=== PATIENT | female | born 1975 | race Caucasian/White ===

== ENCOUNTER 2017-02-23 14:49 | Emergency (ER) | payer OTHER ==
[2017-02-23 17:21] LABS: ADD MAN DIFF? NO
[2017-02-23 17:22] LABS: ABNORMAL IP MESSAGE 1; EOSINOPHILS # 0.2 10^3/ul (0.0-0.5); EOSINOPHILS % 5.4 % (0.0-7.0); HEMATOCRIT 27.8 % (37.0-47.0); HEMOGLOBIN 8.6 g/dl (12.0-16.0); LYMPHOCYTES # 0.6 10^3/ul (0.8-2.9); LYMPHOCYTES % 19.7 % (15.0-51.0); MEAN CORPUSCULAR HEMOGLOBIN 28.1 pg (29.0-33.0); MEAN CORPUSCULAR HGB CONC 30.9 g/dl (32.0-37.0); MEAN CORPUSCULAR VOLUME 90.8 fl (82.0-101.0); MONOCYTE # 0.3 10^3/ul (0.3-0.9); MONOCYTES % 8.8 % (0.0-11.0); NEUTROPHIL # 1.9 10^3/ul (1.6-7.5); NEUTROPHILS % 65.4 % (39.0-77.0); PLATELET COUNT 254 10^3/UL (140-415); RED BLOOD COUNT 3.06 10^6/ul (4.20-5.40); RED CELL DISTRIBUTION WIDTH 21.5 % (11.5-14.5)
[2017-02-23 17:33] LABS: POSITIVE DIFF @See below
[2017-02-23 17:46] LABS: PROTIME 12.2 Sec (11.9-14.9)
[2017-02-23 17:47] LABS: PARTIAL THROMBOPLASTIN TIME 30.8 Sec (25.0-35.0)
[2017-02-23 17:50] LABS: ALANINE AMINOTRANSFERASE 20 IU/L (13-69); ALBUMIN 4.2 g/dl (3.3-4.9); ALBUMIN/GLOBULIN RATIO 1.05; ALKALINE PHOSPHATASE 70 IU/L (42-121); ANION GAP 11 (8-16); ASPARTATE AMINO TRANSFERASE 25 IU/L (15-46); BILIRUBIN,INDIRECT 0.1 mg/dl (0-1.1); BILIRUBIN,TOTAL 0.1 mg/dl (0.2-1.3); BLOOD UREA NITROGEN 15 mg/dl (7-20); CALCIUM 9.2 mg/dl (8.4-10.2); CARBON DIOXIDE 30 mmol/L (21-31); CHLORIDE 101 mmol/L (97-110); CREATININE 0.96 mg/dl (0.44-1.00); GLUCOSE 73 mg/dl (70-220); POTASSIUM 3.4 mmol/L (3.5-5.1); SODIUM 139 mmol/L (135-144); TOTAL PROTEIN 8.2 g/dl (6.1-8.1)
== END 2017-02-23 18:20 | disposition home or self-care (01) ==
LOC: E/R 18:20
DX: D64.9 Anemia, unspecified (principal); E87.5 Hyperkalemia; C52 Malignant neoplasm of vagina; R06.02 Shortness of breath; Z85.41 Personal history of malignant neoplasm of cervix uteri
CPT/HCPCS: 36415; 71045; 80053; 85025; 85610; 85730; 93005; 99285-25

== ENCOUNTER 2017-04-18 04:33 | Inpatient (IN) | payer OTHER ==
[2017-04-18] MEDS ORDERED: BISACODYL (EC) 5 MG TAB PO (06:30)
[2017-04-18] MEDS ORDERED: ONDANSETRON 4 MG INJ IV (06:30)
[2017-04-18] MEDS ORDERED: SOD CHLORIDE 0.9% 1,000 ML IV (06:30)
[2017-04-18] MEDS ORDERED: ACETAMINOPHEN 325 MG TAB PO (06:30)
[2017-04-18] MEDS: SOD CHLORIDE 0.9% 500 ML IV ×2 (07:17→16:48)
[2017-04-18] MEDS: PANTOPRAZOLE (EC) 40 MG TAB PO (07:17)
[2017-04-18] MEDS: CEFEPIME 1GM/50 ML (PMX) 50 ML IVPB (08:24)
[2017-04-18 09:04] LABS: ADD MAN DIFF? NO
[2017-04-18 09:23] LABS: BASOPHILS % 0.8 % (0.0-2.0); EOSINOPHILS # 0.5 10^3/ul (0.0-0.5); EOSINOPHILS % 13.6 % (0.0-7.0); HEMOGLOBIN 10.4 g/dl (12.0-16.0); LYMPHOCYTES # 0.6 10^3/ul (0.8-2.9); LYMPHOCYTES % 15.6 % (15.0-51.0); MEAN CORPUSCULAR HGB CONC 33.5 g/dl (32.0-37.0); MEAN CORPUSCULAR VOLUME 101.3 fl (82.0-101.0); MEAN PLATELET VOLUME 8.6 fl (7.4-10.4); MONOCYTE # 0.4 10^3/ul (0.3-0.9); MONOCYTES % 8.8 % (0.0-11.0); NEUTROPHIL # 2.4 10^3/ul (1.6-7.5); NEUTROPHILS % 60.9 % (39.0-77.0); PLATELET COUNT 277 10^3/UL (140-415); RED BLOOD COUNT 3.06 10^6/ul (4.20-5.40); RED CELL DISTRIBUTION WIDTH 15.5 % (11.5-14.5)
[2017-04-18 10:09] LABS: ALANINE AMINOTRANSFERASE 23 IU/L (13-69); ALBUMIN 3.8 g/dl (3.3-4.9); ALBUMIN/GLOBULIN RATIO 1.11; ALKALINE PHOSPHATASE 47 IU/L (42-121); ANION GAP 13 (8-16); ASPARTATE AMINO TRANSFERASE 19 IU/L (15-46); BILIRUBIN,INDIRECT 0.1 mg/dl (0-1.1); BILIRUBIN,TOTAL 0.1 mg/dl (0.2-1.3); BLOOD UREA NITROGEN 14 mg/dl (7-20); CALCIUM 9.4 mg/dl (8.4-10.2); CARBON DIOXIDE 26 mmol/L (21-31); CHLORIDE 110 mmol/L (97-110); GLUCOSE 91 mg/dl (70-220); SODIUM 145 mmol/L (135-144); TOTAL PROTEIN 7.2 g/dl (6.1-8.1)
[2017-04-18] MEDS ORDERED: DOCUSATE SODIUM 100 MG CAP PO (10:30)
[2017-04-18] MEDS ORDERED: NACL 0.9% 3 ML SYG IV (10:30)
[2017-04-18] MEDS: DOCUSATE SODIUM 100 MG CAP PO ×2 (13:03→22:03)
[2017-04-18] MEDS: HEPARIN 5,000 UNIT/0.5 ML VIAL SC ×2 (14:00→22:08)
[2017-04-18] MEDS: FAMOTIDINE 20 MG INJ IV (22:02)
[2017-04-18] MEDS: HYDROCODONE/APAP (5/325) TAB PO (23:46)
[2017-04-19] MEDS: SOD CHLORIDE 0.9% 500 ML IV ×3 (02:49→14:26)
[2017-04-19 05:34] LABS: ADD MAN DIFF? NO
[2017-04-19 05:36] LABS: BASOPHILS % 0.6 % (0.0-2.0); EOSINOPHILS # 0.6 10^3/ul (0.0-0.5); EOSINOPHILS % 15.7 % (0.0-7.0); HEMATOCRIT 29.1 % (37.0-47.0); HEMOGLOBIN 9.8 g/dl (12.0-16.0); LYMPHOCYTES # 0.9 10^3/ul (0.8-2.9); LYMPHOCYTES % 24.5 % (15.0-51.0); MEAN CORPUSCULAR HEMOGLOBIN 33.6 pg (29.0-33.0); MEAN CORPUSCULAR HGB CONC 33.7 g/dl (32.0-37.0); MEAN CORPUSCULAR VOLUME 99.7 fl (82.0-101.0); MONOCYTE # 0.3 10^3/ul (0.3-0.9); MONOCYTES % 9.4 % (0.0-11.0); NEUTROPHIL # 1.8 10^3/ul (1.6-7.5); NEUTROPHILS % 49.5 % (39.0-77.0); PLATELET COUNT 250 10^3/UL (140-415); RED BLOOD COUNT 2.92 10^6/ul (4.20-5.40); RED CELL DISTRIBUTION WIDTH 15.3 % (11.5-14.5)
[2017-04-19 05:36] LABS: WHITE BLOOD COUNT 3.6 10^3/ul (4.8-10.8)
[2017-04-19 05:48] LABS: ANION GAP 16 (8-16); BLOOD UREA NITROGEN 16 mg/dl (7-20); CALCIUM 9.2 mg/dl (8.4-10.2); CARBON DIOXIDE 25 mmol/L (21-31); CHLORIDE 108 mmol/L (97-110); CREATININE 0.99 mg/dl (0.44-1.00); GLUCOSE 129 mg/dl (70-220); MAGNESIUM 1.5 mg/dl (1.7-2.5); PHOSPHORUS 4.6 mg/dl (2.5-4.9); POTASSIUM 3.9 mmol/L (3.5-5.1); SODIUM 145 mmol/L (135-144)
[2017-04-19] MEDS: HEPARIN 5,000 UNIT/0.5 ML VIAL SC ×3 (06:26→22:45)
[2017-04-19] MEDS: CEFEPIME 1GM/50 ML (PMX) 50 ML IVPB (08:57)
[2017-04-19] MEDS: FAMOTIDINE 20 MG INJ IV ×2 (08:57→20:20)
[2017-04-19] MEDS: DOCUSATE SODIUM 100 MG CAP PO ×2 (08:57→20:21)
[2017-04-19] MEDS: MAGNESIUM SULFATE 2 GM/50 ML 50 ML IVPB (11:16)
[2017-04-19 16:59] LABS: ANION GAP 16 (8-16); BLOOD UREA NITROGEN 13 mg/dl (7-20); CALCIUM 9.2 mg/dl (8.4-10.2); CARBON DIOXIDE 25 mmol/L (21-31); CHLORIDE 107 mmol/L (97-110); CREATININE 0.95 mg/dl (0.44-1.00); GLUCOSE 109 mg/dl (70-220); POTASSIUM 3.6 mmol/L (3.5-5.1); SODIUM 144 mmol/L (135-144)
[2017-04-20] MEDS: HYDROCODONE/APAP (5/325) TAB PO ×2 (00:36→00:49)
[2017-04-20] MEDS: SOD CHLORIDE 0.9% 500 ML IV (00:47)
[2017-04-20 05:37] LABS: ADD MAN DIFF? NO
[2017-04-20 05:48] LABS: BASOPHILS % 0.3 % (0.0-2.0); EOSINOPHILS # 0.5 10^3/ul (0.0-0.5); EOSINOPHILS % 15.5 % (0.0-7.0); HEMATOCRIT 30.1 % (37.0-47.0); LYMPHOCYTES # 0.8 10^3/ul (0.8-2.9); LYMPHOCYTES % 26.3 % (15.0-51.0); MEAN CORPUSCULAR HEMOGLOBIN 33.1 pg (29.0-33.0); MEAN CORPUSCULAR HGB CONC 33.2 g/dl (32.0-37.0); MEAN CORPUSCULAR VOLUME 99.7 fl (82.0-101.0); MONOCYTE # 0.4 10^3/ul (0.3-0.9); MONOCYTES % 12.8 % (0.0-11.0); NEUTROPHIL # 1.4 10^3/ul (1.6-7.5); NEUTROPHILS % 44.8 % (39.0-77.0); PLATELET COUNT 244 10^3/UL (140-415); RED BLOOD COUNT 3.02 10^6/ul (4.20-5.40)
[2017-04-20] MEDS: HEPARIN 5,000 UNIT/0.5 ML VIAL SC ×3 (06:00→22:00)
[2017-04-20] MEDS: FAMOTIDINE 20 MG INJ IV ×2 (08:26→20:45)
[2017-04-20] MEDS: DOCUSATE SODIUM 100 MG CAP PO ×2 (08:26→20:45)
[2017-04-20] MEDS: CEFEPIME 1GM/50 ML (PMX) 50 ML IVPB (08:26)
[2017-04-21] MEDS: HEPARIN 5,000 UNIT/0.5 ML VIAL SC ×2 (06:22→14:00)
[2017-04-21] MEDS: FAMOTIDINE 20 MG INJ IV ×2 (08:25→20:41)
[2017-04-21] MEDS: DOCUSATE SODIUM 100 MG CAP PO ×2 (08:25→20:41)
[2017-04-21] MEDS: CEFEPIME 1GM/50 ML (PMX) 50 ML IVPB (08:28)
[2017-04-21] MEDS: HYDROCODONE/APAP (5/325) TAB PO (14:44)
[2017-04-22 05:38] LABS: INR 0.91; PROTIME 12.3 Sec (11.9-14.9)
[2017-04-22 05:39] LABS: PARTIAL THROMBOPLASTIN TIME 30.3 Sec (25.0-35.0)
[2017-04-22] MEDS ORDERED: LIDOCAINE 2% (SDV) 5 ML INJ (07:00)
[2017-04-22] MEDS: DOCUSATE SODIUM 100 MG CAP PO ×2 (09:00→21:49)
[2017-04-22] MEDS: CEFEPIME 1GM/50 ML (PMX) 50 ML IVPB (09:33)
[2017-04-22] MEDS: FAMOTIDINE 20 MG INJ IV ×2 (09:33→21:49)
[2017-04-22] MEDS ORDERED: FENTAnyl 50 MCG/ML VIAL (18:37)
[2017-04-22] MEDS ORDERED: PROPOFOL 20 ML (18:37)
[2017-04-22] MEDS ORDERED: MIDAZOLAM 1 MG/ML 2 ML INJ (18:41)
[2017-04-22] MEDS ORDERED: KETOROLAC 30 MG INJ IV (19:00)
[2017-04-22] MEDS ORDERED: METOCLOPRAMIDE 10 MG INJ IV (19:00)
[2017-04-22] MEDS ORDERED: MIDAZOLAM 1 MG/ML 2 ML INJ IV (19:00)
[2017-04-22] MEDS ORDERED: MEPERIDINE 25 MG INJ IV (19:00)
[2017-04-22] MEDS ORDERED: FENTAnyl 50 MCG/ML VIAL IV ×3 (19:00)
[2017-04-22] MEDS ORDERED: EPHEDrine SULFATE 50 MG/5 ML SYG IV (19:00)
[2017-04-22] MEDS ORDERED: LABETALOL HCL 20MG INJ IV (19:00)
[2017-04-22] MEDS ORDERED: DIPHENHYDRAMINE 50 MG INJ IV (19:00)
[2017-04-22] MEDS ORDERED: OXYCODONE/ACETAMINOPHEN (5/325) TAB PO ×2 (19:00)
[2017-04-22] MEDS ORDERED: ONDANSETRON 4 MG INJ IV (19:00)
[2017-04-22] MEDS ORDERED: ALBUTEROL 0.083% (NEB) 2.5 MG/3 ML AMP HHN (19:00)
[2017-04-22] MEDS ORDERED: hydrALAzine 20 MG INJ IV (19:00)
[2017-04-22] MEDS ORDERED: HYDROmorphONE (0.2 MG/ML) 10ML SYG IV ×3 (19:00)
[2017-04-22] MEDS ORDERED: DEXAMETHASONE 4 MG/ML 1 ML INJ (19:18)
[2017-04-22] MEDS ORDERED: ONDANSETRON 4 MG INJ (19:18)
[2017-04-22] MEDS: IOHEXOL 300MG/ML 30 ML BTL (19:41)
[2017-04-22] MEDS ORDERED: SUGAMMADEX SODIUM 200 MG/2 ML VIAL IV (19:47)
[2017-04-22] MEDS ORDERED: KETOROLAC 30 MG INJ (19:47)
[2017-04-22] MEDS ORDERED: CEFAZOLIN 1 GM INJ (19:49)
[2017-04-23] MEDS: HYDROCODONE/APAP (5/325) TAB PO (00:23)
[2017-04-23 05:15] LABS: ADD MAN DIFF? NO
[2017-04-23 05:16] LABS: WHITE BLOOD COUNT 3.2 10^3/ul (4.8-10.8)
[2017-04-23 05:16] LABS: ABNORMAL IP MESSAGE 1; BASOPHILS % 0.3 % (0.0-2.0); EOSINOPHILS % 0.3 % (0.0-7.0); HEMATOCRIT 34.4 % (37.0-47.0); HEMOGLOBIN 11.7 g/dl (12.0-16.0); LYMPHOCYTES # 0.6 10^3/ul (0.8-2.9); LYMPHOCYTES % 17.6 % (15.0-51.0); MEAN CORPUSCULAR HEMOGLOBIN 32.6 pg (29.0-33.0); MEAN CORPUSCULAR VOLUME 95.8 fl (82.0-101.0); MEAN PLATELET VOLUME 8.7 fl (7.4-10.4); MONOCYTE # 0.1 10^3/ul (0.3-0.9); MONOCYTES % 3.1 % (0.0-11.0); NEUTROPHIL # 2.5 10^3/ul (1.6-7.5); NEUTROPHILS % 78.4 % (39.0-77.0); PLATELET COUNT 289 10^3/UL (140-415); RED BLOOD COUNT 3.59 10^6/ul (4.20-5.40); RED CELL DISTRIBUTION WIDTH 13.7 % (11.5-14.5)
[2017-04-23 05:19] LABS: POSITIVE DIFF @See below
[2017-04-23 06:00] LABS: ALANINE AMINOTRANSFERASE 49 IU/L (13-69); ALBUMIN 4.3 g/dl (3.3-4.9); ALBUMIN/GLOBULIN RATIO 1.13; ALKALINE PHOSPHATASE 55 IU/L (42-121); ANION GAP 16 (8-16); ASPARTATE AMINO TRANSFERASE 42 IU/L (15-46); BILIRUBIN,INDIRECT 0.1 mg/dl (0-1.1); BILIRUBIN,TOTAL 0.1 mg/dl (0.2-1.3); BLOOD UREA NITROGEN 21 mg/dl (7-20); CARBON DIOXIDE 28 mmol/L (21-31); CHLORIDE 103 mmol/L (97-110); CREATININE 1.13 mg/dl (0.44-1.00); GLUCOSE 124 mg/dl (70-220); POTASSIUM 4.1 mmol/L (3.5-5.1); SODIUM 143 mmol/L (135-144); TOTAL PROTEIN 8.1 g/dl (6.1-8.1)
[2017-04-23] MEDS: DOCUSATE SODIUM 100 MG CAP PO (08:41)
[2017-04-23] MEDS: FAMOTIDINE 20 MG INJ IV (08:41)
[2017-04-23] MEDS: CEFEPIME 1GM/50 ML (PMX) 50 ML IVPB (08:41)
[2017-04-23] MEDS: ONDANSETRON 4 MG INJ IV (10:32)
== END 2017-04-23 15:45 | disposition home or self-care (01) | DRG 690 ==
LOC: MS1 04:33
PROC: 0TP98DZ Removal of Intraluminal Device from Ureter, Via Natural or Artificial Opening Endoscopic (ICD-10-PCS; principal; 2017-04-22 19:00)
PROC: 0TP98DZ Removal of Intraluminal Device from Ureter, Via Natural or Artificial Opening Endoscopic (ICD-10-PCS; 2017-04-22 19:00)
PROC: 0T788DZ Dilation of Bilateral Ureters with Intraluminal Device, Via Natural or Artificial Opening Endoscopic (ICD-10-PCS; 2017-04-22 19:00)
DX: N13.6 Pyonephrosis (principal); E87.0 Hyperosmolality and hypernatremia; N13.30 Unspecified hydronephrosis; Z79.899 Other long term (current) drug therapy; Z96.0 Presence of urogenital implants; Z90.710 Acquired absence of both cervix and uterus; Z92.3 Personal history of irradiation; Z85.41 Personal history of malignant neoplasm of cervix uteri
CPT/HCPCS: 71045; 74018; 74430; 80048; 80053; 83735; 84100; 84703; 85025; 85610; 85730; 87040; 87081; 87086; 93005

== ENCOUNTER 2017-05-24 14:44 | Emergency (ER) | payer OTHER ==
[2017-05-24 16:27] LABS: URINE BLOOD (Dip) POC 2+ (NEGATIVE); URINE GLUCOSE (Dip) POC Negative (NEGATIVE); URINE KETONES (Dip) POC Negative (NEGATIVE); URINE LEUKOCYTE EST (Dip) POC 1+ (NEGATIVE); URINE NITRITE (Dip) POC Negative (NEGATIVE); URINE TOTAL PROTEIN POC 3+ (NEGATIVE)
[2017-05-24 16:36] LABS: URINE BLOOD (Dip) POC 1+ (NEGATIVE); URINE GLUCOSE (Dip) POC Negative (NEGATIVE); URINE KETONES (Dip) POC Negative (NEGATIVE); URINE LEUKOCYTE EST (Dip) POC Trace (NEGATIVE); URINE NITRITE (Dip) POC Negative (NEGATIVE); URINE TOTAL PROTEIN POC 3+ (NEGATIVE)
== END 2017-05-24 17:37 | disposition home or self-care (01) ==
LOC: FTE 14:44
DX: R30.0 Dysuria (principal); C53.9 Malignant neoplasm of cervix uteri, unspecified; Z96.0 Presence of urogenital implants
CPT/HCPCS: 81003; 81025; 99284

== ENCOUNTER 2017-10-08 02:25 | Emergency (ER) | payer OTHER ==
[2017-10-08] MEDS ORDERED: ONDANSETRON (ODT) 4 MG TAB ODT (04:18)
== END 2017-10-08 06:00 | disposition home or self-care (01) ==
LOC: FTE 06:00
DX: K52.9 Noninfective gastroenteritis and colitis, unspecified (principal); Z85.41 Personal history of malignant neoplasm of cervix uteri
CPT/HCPCS: 99284; Z7610

== ENCOUNTER 2017-11-11 22:18 | Emergency (ER) | payer OTHER ==
[2017-11-12 00:58] LABS: URINE BLOOD (Dip) POC 3+ (NEGATIVE); URINE GLUCOSE (Dip) POC Negative (NEGATIVE); URINE KETONES (Dip) POC Negative (NEGATIVE); URINE LEUKOCYTE EST (Dip) POC Trace (NEGATIVE); URINE NITRITE (Dip) POC Negative (NEGATIVE); URINE TOTAL PROTEIN POC 3+ (NEGATIVE)
== END 2017-11-12 01:48 | disposition home or self-care (01) ==
LOC: FTE 22:18
DX: N39.0 Urinary tract infection, site not specified (principal); Z85.41 Personal history of malignant neoplasm of cervix uteri
CPT/HCPCS: 81003; 81025; 99283

== ENCOUNTER 2017-11-21 21:53 | Emergency (ER) | payer OTHER ==
[2017-11-21 22:55] LABS: URINE BLOOD (Dip) POC 3+ (NEGATIVE); URINE GLUCOSE (Dip) POC Negative (NEGATIVE); URINE KETONES (Dip) POC Trace (NEGATIVE); URINE LEUKOCYTE EST (Dip) POC Trace (NEGATIVE); URINE NITRITE (Dip) POC Negative (NEGATIVE); URINE TOTAL PROTEIN POC 3+ (NEGATIVE)
[2017-11-21 22:55] LABS: URINE PH (Dip) POC 7.5 (5.0-8.5)
[2017-11-21] MEDS: KETOROLAC 30 MG INJ IV (23:43)
[2017-11-21 23:47] LABS: ABNORMAL IP MESSAGE 1; HEMATOCRIT 28.1 % (37.0-47.0); HEMOGLOBIN 9.2 g/dl (12.0-16.0); MEAN CORPUSCULAR HEMOGLOBIN 36.5 pg (29.0-33.0); MEAN CORPUSCULAR HGB CONC 32.7 g/dl (32.0-37.0); MEAN CORPUSCULAR VOLUME 111.5 fl (82.0-101.0); PLATELET COUNT 185 10^3/UL (140-415); RED BLOOD COUNT 2.52 10^6/ul (4.20-5.40); RED CELL DISTRIBUTION WIDTH 14.5 % (11.5-14.5)
[2017-11-21 23:48] LABS: ADD MAN DIFF? YES; PATH REVIEW? YES; POSITIVE DIFF @See below
[2017-11-22 00:07] LABS: ANION GAP 13 (8-16)
[2017-11-22 00:08] LABS: ALANINE AMINOTRANSFERASE 25 IU/L (13-69); ALBUMIN/GLOBULIN RATIO 1.05; ALKALINE PHOSPHATASE 60 IU/L (42-121); ASPARTATE AMINO TRANSFERASE 27 IU/L (15-46); BILIRUBIN,INDIRECT 0.3 mg/dl (0-1.1); BILIRUBIN,TOTAL 0.3 mg/dl (0.2-1.3); BLOOD UREA NITROGEN 19 mg/dl (7-20); CALCIUM 9.8 mg/dl (8.4-10.2); CARBON DIOXIDE 29 mmol/L (21-31); CHLORIDE 104 mmol/L (97-110); CREATININE 1.07 mg/dl (0.44-1.00); GLUCOSE 105 mg/dl (70-220); LIPASE 66 U/L (23-300); POTASSIUM 3.9 mmol/L (3.5-5.1); SODIUM 142 mmol/L (135-144); TOTAL PROTEIN 7.8 g/dl (6.1-8.1)
[2017-11-22 00:51] LABS: ANISOCYTOSIS 1+ (0-0); EOSINOPHILS % (M) 8 % (0-7); LYMPHOCYTES #M 0.8 10^3/ul (0.8-2.9); LYMPHOCYTES % (M) 41 % (15-51); MONOCYTES % (M) 4 % (0-11); PLATELET ESTIMATE NORMAL; SEGMENTED NEUTROPHILS (M) % 47 % (39-77); SMUDGE%M 25 % (0-0)
[2017-11-22 03:48] LABS: ADD UMIC YES; UR ASCORBIC ACID NEGATIVE (NEGATIVE); UR BILIRUBIN (Dip) NEGATIVE (NEGATIVE); UR BLOOD (Dip) 3+ mg/dL (NEGATIVE); UR CLARITY CLOUDY (CLEAR); UR COLOR RED (YELLOW); UR GLUCOSE (Dip) NEGATIVE (NEGATIVE); UR KETONES (Dip) NEGATIVE (NEGATIVE); UR LEUKOCYTE ESTERASE (Dip) NEGATIVE Leu/ul (NEGATIVE); UR MUCUS MODERATE /HPF (NONE SEEN); UR NITRITE (Dip) NEGATIVE (NEGATIVE); UR RBC > 182 /HPF (0-5); UR SPECIFIC GRAVITY (Dip) 1.024 (1.003-1.030); UR TOTAL PROTEIN (Dip) 2+ mg/dl (NEGATIVE); UR UROBILINOGEN (Dip) NEGATIVE (NEGATIVE); UR WBC 16 /HPF (0-5)
== END 2017-11-22 03:39 | disposition home or self-care (01) ==
LOC: FTE 11-22 03:39
DX: R31.9 Hematuria, unspecified (principal); R10.2 Pelvic and perineal pain; Z85.41 Personal history of malignant neoplasm of cervix uteri
CPT/HCPCS: 36415; 74176; 80053; 81001; 81003; 81025; 83690; 85025; 87086; 96374; 99285-25

== ENCOUNTER 2018-06-22 11:07 | Emergency (ER) | payer OTHER ==
[2018-06-22] MEDS: DEXAMETHASONE 10 MG/ML 1 ML INJ PO (12:07)
== END 2018-06-22 12:25 | disposition home or self-care (01) ==
LOC: FTE 12:25
DX: J06.9 Acute upper respiratory infection, unspecified (principal)
CPT/HCPCS: 99283; J1100